=== PATIENT | female | born 1975 | race Caucasian/White ===

== ENCOUNTER → 2017-03-09 | Outpatient (CLI) | payer BC ==
--- NOTE | ~2017-03-09 | US5 ---
[facility] A Service of [facility] RADIOLOGY TEXT RESULTS PATIENT: RODOLFO INFANTE LOCATION: [facility] : 71 UNIT #: [id number] AGE: [address]: Lexis Vazquez APRN SEX: F ORDER DR: [id number] [facility] [address] [place], [place] [address] [id number] O MR#: [id number] Acc #: [id number] NAME: RODOLFO INFANTE : 1975 SEX: F STUDY DATE/TIME: 03/09/2017 9:11 UNIT: [facility] ROOM: STUDY DESCRIPTION: US Abdominal Complete Attending Physician: Lexis Vazquez A.P.R.N. Referring Physician: Lexis Vazquez A.P.R.N. Ordering Physician: Lexis Vazquez A.P.R.N. Primary Care Physician: Diogo Cortez M.D. MEDICAL IMAGING REPORT This report is preliminary unless electronic signature is present EXAM Abdominal ultrasound complete, 12/13/16 HISTORY Nausea and vomiting with abnormally elevated liver enzymes for one week. Cholecystectomy. FINDINGS The live demonstrates an increase in echotexture with [id number] of the ultrasound beam characteristic of fatty infiltration. No cystic or solid mass lesions were seen in the liver. The intra and extrahepatic bile ducts are not dilated. The gallbladder is surgically absent as per patient history. The common duct measures 8 mm. The pancreas is stephanie. The spleen is minimally enlarge measuring 13.4 cm in greatest diameter. The visualized portion of the abdominal aorta and inferior vena cava are within normal limits. The kidneys are normal bilaterally. IMPRESSION 1. Fatty infiltration of the liver. 2. Surgical absence of the gallbladder. 3. Mild splenomegaly. Dictated by... Rg Iglesias M.D. THIS IS AN ELECTRONICALLY VERIFIED REPORT Rg Iglesias M.D. at 03/10/2017 2:10 PM YEISON/jesús [facility] A Service of [facility] RADIOLOGY TEXT RESULTS PATIENT: RODOLFO INFANTE LOCATION: [facility] : 71 UNIT #: [id number] AGE: [address]: Lexis Vazquez APRN SEX: F ORDER DR: TD: 03/09/2017 15:32 JOB #: [id number] MEDICAL IMAGING REPORT Page 1 of 1 COPY
== END | disposition home or self-care (01) ==
LOC: CWCC 08:28
DX: R11.0 Nausea (principal); R14.0 Abdominal distension (gaseous); K76.0 Fatty (change of) liver, not elsewhere classified; Z90.49 Acquired absence of other specified parts of digestive tract; R16.1 Splenomegaly, not elsewhere classified
CPT/HCPCS: 76700